=== PATIENT | female | born 1945 | race Caucasian/White ===

== ENCOUNTER 2019-09-16 18:53 | Emergency (ER) | payer BC, MEDICARE ==
[2019-09-16] MEDS ORDERED: Adacel (T-DAP) 0.5 ML SYRINGE ONE (19:11)
[2019-09-16] MEDS ORDERED: Bacitracin Zinc Ointment 30 gm TUBE ONE (19:19)
== END 2019-09-16 19:29 | disposition home or self-care (01) ==
LOC: BURERS 18:53
DX: S51.812A Laceration without foreign body of left forearm, initial encounter (principal); I49.9 Cardiac arrhythmia, unspecified; I48.91 Unspecified atrial fibrillation; K21.9 Gastro-esophageal reflux disease without esophagitis; Z23 Encounter for immunization; W26.8XXA Contact with other sharp object(s), not elsewhere classified, initial encounter
CPT/HCPCS: 90471; 90715

== ENCOUNTER 2020-06-07 00:14 | Emergency (ER) | payer BC, MEDICARE ==
[2020-06-07] MEDS ORDERED: Morphine 4 MG/ML VIAL ONE (00:42)
[2020-06-07] MEDS ORDERED: Ondansetron PF 4 MG/2 ML Vial ONE (00:42)
[2020-06-07] MEDS ORDERED: Fentanyl 100 MCG/2 ML VIAL ONE (01:44)
[2020-06-07] MEDS ORDERED: Acetaminophen/Codeine 30-300mg Tablet ONE (02:53)
--- NOTE | 2020-06-07 07:20 | CT ---
PRELIMINARY REPORT/[facility]/EMERGENCY AFTER HOURS PROCEDURE: Addendum: 1st line of IMPRESSION should read "No acute bony abnormality." Addendum electronically signed by Adam Cooper MD on June 07, 2020 3:07:26 AM CDT PROCEDURE: CT LEFT hip without contrast. HISTORY: Fall and hip pain. TECHNIQUE: Axial images were done through the LEFT hip without contrast with multiplanar reformations . COMPARISONS: None . FINDINGS: No acute fracture or dislocation. 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 No joint effusion. No soft tissue abnormality. IMPRESSION: Is acute bony abnormality. ELECTRONICALLY SIGNED BY: Adam Cooper MD Jun 07, 2020 2:20:40 AM CDT This report is intended for review by the ordering physician only, in accordance of law. If you recei ve this report in error, please call [facility] at [phone]. FINAL REPORT CT OF THE LEFT HIP: Date: 06/07/[address] of the hip was performed following trauma. Axial slices were acquired, followed by coronal and sagittal reconstructions. No fracture, dislocation, or acute bony change seen. All bones appear intact. There is some mild bony spurring at the hip joint, no more so than expected for age. The articular surfaces seem smooth. Wha t I can see of the adjacent pubic ring appears intact, the medial part of the pubic symphysis is not shown. IMPRESSION: No acute traumatic findings. Report in agreement with preliminary reading by [facility]. POS: HOME
--- NOTE | 2020-06-07 07:49 | RAD ---
LEFT HIP 2 VIEWS: Date: 06/07/2020 No fracture, dislocation, or joint space narrowing seen. The adjacent pubic ring appears intact. IMPRESSION: No acute findings. POS: HOME
--- NOTE | 2020-06-07 07:50 | RAD ---
LEFT SHOULDER 3 VIEWS: Date: 06/07/2020 No fracture or dislocation seen. The AC joint is not widened. The visible adjacent ribs appear intact , as does the scapula. IMPRESSION: No acute findings. POS: HOME
--- NOTE | 2020-06-07 07:51 | RAD ---
RIGHT ANKLE 3 VIEWS: Date: 06/07/2020 Multiple fractures are present. There is fracture through the medial malleolus with displacement and through the distal fibula just above the lateral malleolus that is only minimally displaced. On the l ateral view, a bony fragment is seen just anterior to the ankle joint that probably came from the med ial malleolar fracture. The calcaneus appears intact and there is a calcaneal spur. The ankle mortise has been disrupted and the tibia is displaced somewhat medial with respect to the dome of the talus. IMPRESSION: Bimalleolar fractures with disruption of the ankle mortise. POS: HOME
--- NOTE | 2020-06-07 07:55 | RAD ---
LEFT ELBOW 4 VIEWS: Date: 06/07/2020 No fracture or joint effusion seen. All bones appear intact. IMPRESSION: No acute findings. POS: HOME
--- NOTE | 2020-06-07 07:55 | RAD ---
PORTABLE CHEST: Date: 06/07/2020 The heart is normal in size and the lungs are clear. There is no widening of the mediastinum. The tra loida is midline. No bony fractures appreciated. Ribs appear intact. IMPRESSION: No acute findings. POS: HOME
== END 2020-06-07 02:45 | disposition home or self-care (01) ==
LOC: BURERS 00:14
DX: S82.841A Displaced bimalleolar fracture of right lower leg, initial encounter for closed fracture (principal); S70.02XA Contusion of left hip, initial encounter; M25.522 Pain in left elbow; M25.512 Pain in left shoulder; I48.91 Unspecified atrial fibrillation; K21.9 Gastro-esophageal reflux disease without esophagitis; W01.0XXA Fall on same level from slipping, tripping and stumbling without subsequent striking against object, initial encounter
CPT/HCPCS: 29515; 71045; 96374; 96375; J2270; J2405; J3010

== ENCOUNTER 2021-05-15 13:53 | Emergency (ER) | payer BC, MEDICARE ==
[~2021-05-15 13:53] MED LIST: Iopamidol 370 76% 100 ML VIAL ONE
[2021-05-15] MEDS ORDERED: Morphine 4 MG/ML VIAL ONE (14:25)
[2021-05-15] MEDS ORDERED: Ondansetron PF 4 MG/2 ML Vial ONE (14:25)
[2021-05-15 14:33] LABS: #Basophils 0.1 thou/uL (0.0-0.2); #Eosinphils 0.1 thou/uL (0.0-0.7); #Lymphocytes 2.3 thou/uL (1.20-3.40); #Monocytes 0.6 thou/uL (0.11-0.59); #Neutrophils 4.9 thou/uL (1.40-6.50); %Eosinophils 0.9 % (0.0-10.0); %Lymphocytes 28.9 % (21.0-51.0); %Monocytes 7.5 % (0.0-10.0); %Neutrophils 61.7 % (42.0-75.0); Hemoglobin 11.9 g/dL (12.0-16.0); Mean Corpuscular HGB CONC 31.4 g/dL (32.0-36.0); Mean Corpuscular Hemoglobin 28.5 pg (27.0-31.0); Mean Corpuscular Volume 90.7 fL (78.0-98.0); Mean Platelet Volume 7.7 fL (7.4-10.4); Platelet Count 359 thou/uL (130-400); RBC Distribution Width 14.4 % (11.5-14.5); Red Blood Cell (RBC) Count 4.17 mill/uL (4.20-5.40); White Blood Cell (WBC) Count 7.9 thou/uL (4.8-10.8)
[2021-05-15 14:52] LABS: ALT (SGPT) 23 U/L (8-55); AST (SGOT) 30 U/L (5-34); Albumin 4.1 g/dL (3.4-4.8); Alkaline Phosphatase 115 U/L (40-110); Anion Gap 14 mmol/L (10-20); BUN (Urea Nitrogen) 13 mg/dL (9.8-20.1); Bilirubin, Total 0.4 mg/dL (0.2-1.2); Calc. Creatinine Clearance 0 mL/min (70-130); Calcium 9.8 mg/dL (7.8-10.44); Carbon Dioxide 24 mmol/L (23-31); Chloride 107 mmol/L (98-107); Globulin 3.3 g/dL (2.4-3.5); Glucose 109 mg/dL (83-110); Potassium 3.9 mmol/L (3.5-5.1); Protein, Total 7.4 g/dL (5.8-8.1); Sodium 141 mmol/L (136-145)
== END 2021-05-15 16:00 | disposition home or self-care (01) ==
LOC: BURERS 13:53
DX: R51.9 Headache, unspecified (principal); M62.838 Other muscle spasm; I48.91 Unspecified atrial fibrillation; K21.9 Gastro-esophageal reflux disease without esophagitis
CPT/HCPCS: 70450; 70496; 70498; 80053; 83605; 84484; 85025; 93005; 96374; 96375; J2270; J2405; Q9967

== ENCOUNTER 2022-07-08 23:17 | Emergency (ER) | payer MEDICARE ==
[2022-07-08] MEDS ORDERED: Benzonatate 100 MG CAP ONE (23:44)
== END 2022-07-09 00:17 | disposition home or self-care (01) ==
LOC: BURERS 23:17
DX: J18.9 Pneumonia, unspecified organism (principal); K64.4 Residual hemorrhoidal skin tags; I48.91 Unspecified atrial fibrillation; K21.9 Gastro-esophageal reflux disease without esophagitis
CPT/HCPCS: 71046

== ENCOUNTER 2022-07-15 22:21 | Emergency (ER) | payer MEDICARE ==
[2022-07-15] MEDS ORDERED: Dexamethasone 10 MG/ML VIAL ONE (22:45)
== END 2022-07-15 23:15 | disposition home or self-care (01) ==
LOC: BURERS 22:21
DX: J06.9 Acute upper respiratory infection, unspecified (principal); I48.91 Unspecified atrial fibrillation; K21.9 Gastro-esophageal reflux disease without esophagitis
CPT/HCPCS: 71045; J1100; J7620

== ENCOUNTER 2022-08-27 23:44 | Emergency (ER) | payer MEDICARE ==
[2022-08-28] MEDS ORDERED: cefTRIAXone\\ROCEPHIN 1 GM VIAL ONE (00:10)
[2022-08-28] MEDS ORDERED: Lidocaine 2% PF 5 ML VIAL ONE (00:10)
[2022-08-28] MEDS ORDERED: methylPREDNISolone Sod Succ/PF 125 MG/2 ML VIAL ONE (00:10)
== END 2022-08-28 00:51 | disposition home or self-care (01) ==
LOC: BURERS 23:44
DX: J06.9 Acute upper respiratory infection, unspecified (principal); I48.91 Unspecified atrial fibrillation; K21.9 Gastro-esophageal reflux disease without esophagitis
CPT/HCPCS: 71045; 96372; J0696; J2001; J2930; J7620

== ENCOUNTER 2022-12-30 22:55 | Emergency (ER) | payer MEDICARE ==
[2022-12-30] MEDS ORDERED: Acetaminophen 500 MG TAB ONE (23:43)
[2022-12-30] MEDS ORDERED: Bicillin LA 1.2 MILLION UNITS/2 ML SYRINGE ONE (23:43)
[2022-12-30] MEDS ORDERED: Benzonatate 100 MG CAP ONE (23:43)
== END 2022-12-31 00:47 | disposition home or self-care (01) ==
LOC: BURERS 22:55
DX: J02.9 Acute pharyngitis, unspecified (principal); I48.91 Unspecified atrial fibrillation; K21.9 Gastro-esophageal reflux disease without esophagitis; Z20.822 Contact with and (suspected) exposure to COVID-19
CPT/HCPCS: 87081; 87430; 87804; 96372; 99283; J0561; U0003; U0005

== ENCOUNTER 2024-07-26 20:49 | Emergency (ER) | payer MEDICARE ==
[2024-07-26] MEDS ORDERED: Ketorolac Tromethamine 30 MG (1 mL) VIAL ONE (21:16)
[2024-07-26] MEDS ORDERED: Metoclopramide HCl 10 MG (2 mL) VIAL ONE (21:16)
[2024-07-26 21:33] LABS: ALT (SGPT) 26 U/L (8-55); AST (SGOT) 31 U/L (5-34); Albumin 3.9 g/dL (3.4-4.8); Alkaline Phosphatase 98 U/L (40-110); Anion Gap 16 mmol/L (10-20); BUN (Urea Nitrogen) 20 mg/dL (9.8-20.1); Bilirubin, Total 0.3 mg/dL (0.2-1.2); CK (CPK) 81 U/L (29-168); Calc. Creatinine Clearance 0 mL/min (70-130); Calcium 9.4 mg/dL (7.8-10.44); Carbon Dioxide 20 mmol/L (23-31); Chloride 107 mmol/L (98-107); Estimated GFR 74; Globulin 3.4 g/dL (2.4-3.5); Glucose 99 mg/dL (83-110); Potassium 3.5 mmol/L (3.5-5.1); Protein, Total 7.3 g/dL (5.8-8.1); Sodium 139 mmol/L (136-145)
[2024-07-26 21:38] LABS: #Basophils 0.1 thou/uL (0.0-0.2); #Eosinphils 0.2 thou/uL (0.0-0.7); #Lymphocytes 3.4 thou/uL (1.20-3.40); #Monocytes 0.5 thou/uL (0.11-0.59); #Neutrophils 3.2 thou/uL (1.40-6.50); %Basophils 1.9 % (0.0-1.0); %Eosinophils 2.1 % (0.0-10.0); %Lymphocytes 46.2 % (21.0-51.0); %Monocytes 6.8 % (0.0-10.0); Hematocrit 31.9 % (36.0-47.0); Hemoglobin 11.1 g/dL (12.0-16.0); Mean Corpuscular HGB CONC 34.7 g/dL (32.0-36.0); Mean Corpuscular Hemoglobin 29.4 pg (27.0-31.0); Mean Corpuscular Volume 84.6 fl (78.0-98.0); Mean Platelet Volume 6.5 fL (7.4-10.4); Platelet Count 215 10x3/uL (130-400); RBC Distribution Width 14.2 % (11.5-14.5); Red Blood Cell (RBC) Count 3.77 mill/uL (4.20-5.40); White Blood Cell (WBC) Count 7.4 10x3/uL (4.8-10.8)
== END 2024-07-26 22:35 | disposition home or self-care (01) ==
LOC: BURERS 20:49
DX: I10 Essential (primary) hypertension (principal); R41.0 Disorientation, unspecified; I48.91 Unspecified atrial fibrillation; Z79.899 Other long term (current) drug therapy
CPT/HCPCS: 70450; 80053; 82550; 85025; 93005; 96374; 96375; J1885; J2765